=== PATIENT | female | born 1980 | race Caucasian/White ===

== ENCOUNTER 2017-05-14 06:50 | Day surgery (SDC) | payer BC ==
[2017-05-13 12:46] VITALS: BMI 25.7
[2017-05-14] MEDS ORDERED: VASOPRESSIN 20 UNITS/ML VIAL IV ONE (07:44)
[2017-05-14] MEDS ORDERED: MIDAZOLAM HCL 2 MG/2 ML SINGLE DOSE VIAL ONE (07:47)
[2017-05-14] MEDS ORDERED: PROPOFOL 20 ML ONE (07:47)
[2017-05-14] MEDS ORDERED: ePHEDrine SULFATE 50 MG/1 ML AMPULE ONE (07:47)
[2017-05-14] MEDS ORDERED: LIDOCAINE HCL/PF 2% SDV 5ML VIAL ONE (07:49)
[2017-05-14] MEDS ORDERED: SUCCINYLCHOLINE CHLORIDE 200 MG/10 ML VIAL ONE (07:51)
[2017-05-14] MEDS ORDERED: SODIUM CHLORIDE 0.9% P/F 10 ML VIAL IJ ONE (07:51)
--- NOTE | 2017-05-14 08:22 | HP ---
History & Physical Update - History History: No Change - Physical Physical: No Change - Assessment Assessment: No Change - Plan Plan: No Change
[2017-05-14] MEDS ORDERED: ACETAMINOPHEN 1000 MG/100 ML VIAL (NON FORMULARY) IVPB ONE (08:23)
[2017-05-14] MEDS ORDERED: DEXTROSE 5%-0.45% SALINE 1,000 ML IV SCH (08:30)
[2017-05-14] MEDS ORDERED: LEVOFLOXACIN 500 MG IVPB 100 ML IVPB ONE (08:49)
[2017-05-14] MEDS ORDERED: LEVOFLOXACIN 500 MG PREMIX BAG IVPB ONE (08:49)
[2017-05-14] MEDS ORDERED: DEXAMETHASONE SOD PHOSPHATE 4 MG/1 ML VIAL ONE (08:57)
[2017-05-14] MEDS ORDERED: PROMETHAZINE HCL 25 MG/1 ML VIAL IVPUSH PRN (09:30)
--- NOTE | 2017-05-14 09:59 | OP ---
Operative Note - Note: Operative Date: 05/14/17 (dictation [id number]) Pre-Operative Diagnosis: vaginal laxity Operation: vaginoplasty Post-Operative Diagnosis: Same as Pre-op Surgeon: Ashly Jiang Anesthesia: General Estimated Blood Loss (mls): 20 (40cc total including 20cc for sling procedure) Operative Report Dictated: Yes
[2017-05-14] MEDS ORDERED: HYDROmorphone HCL CARPU-JECT 2 MG/1 ML DISP.SYRIN ONE (10:07)
[2017-05-14] MEDS: HYDROmorphone HCL CARPU-JECT 1 MG/1 ML DISP.SYRIN IVPUSH PRN ×2 (10:08→10:18)
[2017-05-14] MEDS ORDERED: ACETAMINOPHEN INJECTION 100 ML IVPB ONE (10:23)
[2017-05-14 12:58] VITALS: TEMP 98.6
[2017-05-14] MEDS ORDERED: oxyCODONE HCL 5 MG TABLET PO PRN (13:16)
[2017-05-14] MEDS ORDERED: ONDANSETRON 4 MG/2 ML VIAL ONE (14:45)
[2017-05-14] MEDS ORDERED: ONDANSETRON 4 MG/2 ML VIAL IVPB ONE (14:50)
[2017-05-14 18:43] VITALS: BP 124/73; PULSE 90
--- NOTE | 2017-05-18 17:37 | OP ---
DATE OF OPERATION: 05/14/2017 PREOPERATIVE DIAGNOSES: Hypermobile urethra, stress urinary incontinence. POSTOPERATIVE DIAGNOSES: Hypermobile urethra, stress urinary incontinence. PROCEDURE: Cystoscopy and suburethral sling placement. ANESTHESIA: General. SURGEON: Tello Garibay MD ESTIMATED BLOOD LOSS: 20 mL PREOPERATIVE INDICATIONS: The patient has stress urinary incontinence secondary to hypermobile urethra. She comes in for a sling placement. DESCRIPTION OF OPERATION: The patient was brought to the OR, placed on the table in the supine position, given general anesthesia and IV antibiotics, and placed in the modified lithotomy position. The groin was prepped and draped sterilely. Timeout was performed. Cordova catheter was placed. The middle portion of the urethra was mapped out, and Pitressin was injected to hydrodissect into the vaginal mucosa. An incision was made over the middle third of the urethra, and the vaginal mucosa was sharply dissected off the periurethral tissues in a lateral fashion. The bladder was emptied. Using a trocar which was passed under fingertip control, with the sling attached, from the incision towards the right obturator foramen. The plastic piece caught and secured the sling on the right side. The trocar was then removed. The matching trocar for the left side was then applied, and again, using fingertip control, the sling was passed from the vaginal incision laterally toward the obturator canal. The trocar was then removed. The sling was placed in a flat orientation over the portion of the urethra and slightly tightened to the appropriate tightness. Excess suture was removed. There was no buttonholing of the mucosa. Cystoscopy confirmed no perforation of the bladder. The mucosa was then closed with 3-0 Vicryl suture. Good hemostasis was maintained. Debbie [id number]
--- NOTE | 2017-05-20 13:01 | OP ---
DATE OF OPERATION: 05/14/2017 PREOPERATIVE DIAGNOSIS: Vaginal laxity. POSTOPERATIVE DIAGNOSIS: Vaginal laxity. PROCEDURE: Vaginoplasty. SURGEON: Ashly Jiang MD ANESTHESIA: General. ESTIMATED BLOOD LOSS: 20 mL. COMPLICATIONS: None. SPECIMENS: None. COUNTS: Sponge, needle and instrument count correct at the end of the case. DISPOSITION: Stable to PACU. BRIEF HISTORY AND PROCEDURE: The patient is a 36-year-old female, seen in the office complaining of urinary incontinence as well as concern for laxity of the vaginal opening after childbirth. The patient saw Urology as well as myself and was counseled on her options and elected to undergo a suburethral sling as well as a vaginoplasty procedure. The patient signed the consent for the procedure on the morning of May 14, 2017. She was taken back to the operating room. She was given general anesthesia and placed in the dorsal lithotomy position. The suburethral sling procedure was performed first. Please see Dr. Garibay's dictation for the operation on the same date. After the suburethral sling procedure was completed, next, 2 Allis clamps were placed along the vaginal introitus at a width that was previously measured. An incision was made with the blade along the junction between the vaginal epithelium and the perineum at the introitus in a transverse fashion between the two allis clamps. Next, the lax posterior vaginal epithelial tissue was dissected off the underlying tissue with sharp dissection, then a wedge of vaginal epithelial tissue was resected at this time. The underlying tissue was brought together in a reinforcing manner using several interrupted sutures using 2-0 Vicryl. The epithelium was brought together in a running fashion using 3-0 Vicryl suture. Next, a wedge of perineal epithelium was dissected off and resected and the perineal muscles were reinforced with interrupted sutures using 2-0 Vicryl and the epithelium was reapproximated using 3-0 Vicryl in a running fashion, the skin was reapproximated in a subcuticular fashion using 3-0 vicryl. Excellent hemostasis and cosmetic result was obtained at the end of the repair. The vagina was then packed with iodoform packing. At this time, all sponge, needles , and instruments were counted and counts were reported to be correct. The patient tolerated the procedure well, was recovering in stable condition in PACU after the procedure. ASHLY JIANG DO [id number] MTDD
== END 2017-05-14 18:00 | disposition home or self-care (01) ==
LOC: JASU-SURG 06:50
PROVIDERS: ATTEND Obstetrics & Gynecology
PROC: 0TSD0ZZ Reposition Urethra, Open Approach (ICD-10-PCS; principal; 2017-05-14 08:00)
PROC: 0JQC0ZZ Repair Pelvic Region Subcutaneous Tissue and Fascia, Open Approach (ICD-10-PCS; 2017-05-14 08:00)
PROC: 0JQC0ZZ Repair Pelvic Region Subcutaneous Tissue and Fascia, Open Approach (ICD-10-PCS; 2017-05-14 08:00)
DX: N39.3 Stress incontinence (female) (male) (principal); N81.10 Cystocele, unspecified; N81.89 Other female genital prolapse; N36.41 Hypermobility of urethra
CPT/HCPCS: 84703; 86850; 86900; 86901; 94760